=== PATIENT | female | born 1935 | race African-American/Black ===

== ENCOUNTER 2016-06-21 03:40 | Inpatient (IN) | payer OTHER ==
[~2016-06-21] VITALS: Ht 162.6 cm; Wt 65.8 kg
[2016-06-21] VITALS (21 sets, daily range): BP systolic 118–201; BP diastolic 65–105
[2016-06-21] MEDS ORDERED: ASPIRIN 81MG TABLET PO STA (03:50)
[2016-06-21] MEDS ORDERED: ONDANSETRON HCL 4MG/2ML VIAL IV STA (03:50)
[2016-06-21] MEDS ORDERED: MORPHINE SULFATE 4 MG/ML CPJ (NOT FOR IM USE) IV STA (03:50)
[2016-06-21 04:09] LABS: DIFFERENTIAL COMMENT 0; HEMATOCRIT. 30.7 % (36.0-48.0); HEMOGLOBIN. 10.2 g/dL (12.0-16.0); LYMPHOCYTES % 33.2 % (20.0-50.0); MEAN CORPUSCULAR HEMOGLOBIN 35.9 pg (28.0-32.0); MEAN CORPUSCULAR HGB CONC 33.3 g/dL (31.0-37.0); MEAN CORPUSCULAR VOLUME 107.9 fL (81.0-99.0); MEAN PLATELET VOLUME 7.7 fl (7.4-10.4); MONOCYTES % 12.5 % (2.0-8.0); NEUTROPHILS % 51.3 % (40.0-76.0); PLATELET 130 x1000/uL (130-400); RED BLOOD CELL COUNT 2.84 mill/uL (4.2-5.4); RED CELL DISTRIBUTION WIDTH 20.6 % (11.6-14.6); WHITE BLOOD COUNT 4.9 x1000/uL (4.5-11.0)
[2016-06-21 04:22] LABS: INR 1.2; PARTIAL THROMBOPLASTIN TIME 24.8 sec (24.0-34.0)
[2016-06-21 04:27] LABS: ALANINE AMINOTRANSFERASE 29 IU/L (13-61); ANION GAP 18; CALCIUM 7.7 mg/dL (8.5-10.1); CARBON DIOXIDE 27 mEq/L (21-32); CHLORIDE 101 mEq/L (98-107); INDEX HEMOLYSI 1 (1-3); INDEX ICTERIC 1 (1-4); INDEX LIPEMIC 1 (1-3); LIPASE 584 IU/L (73-393); TROPONIN I 0.03 ng/mL (0.00-0.04); UREA NITROGEN BLOOD 67 mg/dL (7-21); eGFR 5 mL/min (>60)
[2016-06-21] MEDS ORDERED: LORAZEPAM 2MG/ML CPJ IV PRN (09:45)
[2016-06-21] MEDS ORDERED: DIPHENHYDRAMINE 50MG/ML VIAL IV PRN (09:45)
[2016-06-21] MEDS ORDERED: GUAIFENESIN 200MG/10ML SUGAR FREE UDC PO PRN (09:45)
[2016-06-21] MEDS ORDERED: TRAMADOL 50MG TABLET PO PRN (09:45)
[2016-06-21] MEDS ORDERED: MORPHINE SULFATE 2 MG/ML CPJ (NOT FOR IM USE) IV PRN (09:45)
[2016-06-21] MEDS ORDERED: NITROGLYCERIN 0.4MG TABLET SL SL PRN (09:45)
[2016-06-21] MEDS ORDERED: ONDANSETRON HCL 4MG/2ML VIAL IV PRN (09:45)
[2016-06-21] MEDS ORDERED: IPRATROPIUM/ALBUTEROL 0.5-3(2.5)MG/3ML NEB INH PRN (09:45)
[2016-06-21] MEDS ORDERED: ACETAMINOPHEN 325MG TABLET PO PRN (09:45)
[2016-06-21] MEDS ORDERED: CLONIDINE 0.1MG TABLET PO PRN (09:45)
[2016-06-21] MEDS ORDERED: MAGNESIUM/ALUMINUM HYDROXIDE/SIMETHICONE 30ML UDC PO PRN (09:45)
[2016-06-21] MEDS ORDERED: ZOLPIDEM TARTRATE 5MG TABLET PO PRN (09:45)
[2016-06-21] MEDS ORDERED: DOCUSATE SODIUM 100MG CAPSULE PO PRN (09:45)
[2016-06-21] MEDS ORDERED: NITROGLYCERIN OINT 1GM/INCH UDPKT TD ONE (10:42)
[2016-06-21] MEDS ORDERED: HEPARIN 5000 UNITS/ML VIAL IV NR (10:45)
[2016-06-21] MEDS ORDERED: ASPIRIN/SOD BICARB/CITRIC ACID 324MG TAB EFF PO NR (10:45)
[2016-06-21] MEDS ORDERED: NITROGLYCERIN OINT 1GM/INCH UDPKT TD SCH ×3 (11:00→16:00)
[2016-06-21] MEDS ORDERED: ENOXAPARIN 30MG/0.3ML SYR SUBCUT SCH (11:00)
[2016-06-21] MEDS ORDERED: ASPIRIN 81MG EC TABLET PO NR (11:00)
[2016-06-21] MEDS ORDERED: LABETALOL 5MG/ML SYR 20 MG/4 ML SYRINGE IV NR ×3 (11:30→13:30)
[2016-06-21] MEDS ORDERED: ESMOLOL 2500MG PREMIX 250 ML IV PRN (12:30)
[2016-06-21] MEDS ORDERED: SEVELAMER CARBONATE 800 MG TABLET PO SCH (12:40)
[2016-06-21] MEDS: ESMOLOL 2500MG PREMIX 250 ML IV PRN ×2 (12:46→15:12)
[2016-06-21 13:04] LABS: CREATINE KINASE 51 IU/L (26-192); CREATINE KINASE MB FRACTION < 0.5 ng/mL (0.5-3.6); HDL CHOLESTEROL 71 mg/dL (40-59); INDEX HEMOLYSI 1 (1-3); INDEX ICTERIC 1 (1-4); INDEX LIPEMIC 1 (1-3); LDL CHOLESTEROL 44 mg/dL (5-100); TRIGLYCERIDE 33 mg/dL (0-150); TROPONIN I 0.05 ng/mL (0.00-0.04)
[2016-06-21] MEDS ORDERED: HYDRALAZINE 20MG/ML VIAL IV PRN ×2 (13:15→18:00)
[2016-06-21] MEDS ORDERED: MIDAZOLAM HCL 5 MG/5 ML VIAL IV NR (13:15)
[2016-06-21] MEDS ORDERED: IOHEXOL-350 100 ML BOTTLE ONE (13:17)
[2016-06-21] MEDS ORDERED: SODIUM CHLORIDE 0.9% 10ML VIAL ONE (13:17)
[2016-06-21 16:55] LABS: CREATINE KINASE MB FRACTION 0.6 ng/mL (0.5-3.6); TROPONIN I 0.05 ng/mL (0.00-0.04)
[2016-06-21] MEDS ORDERED: METOPROLOL TARTRATE 25MG TABLET PO SCH (21:00)
[2016-06-22] MEDS ORDERED: ASPIRIN 325MG EC TABLET PO SCH (09:00)
[2016-06-22] MEDS ORDERED: PANTOPRAZOLE SODIUM 40 MG/VIAL IV SCH (09:00)
[2016-06-22] MEDS ORDERED: FOLIC ACID/VITAMIN B COMP W-C TABLET PO SCH (09:00)
== END 2016-06-21 15:35 | disposition short-term general hospital (02) | DRG 299 ==
LOC: ER 03:46 → 7WST 05:27 → CVICU 11:36
PROVIDERS: ADMIT Internal Medicine; ATTEND Internal Medicine
PROC: 5A1D00Z (ICD-10-PCS; principal; 2016-06-21)
DX: I71.00 Dissection of unspecified site of aorta (principal); I50.33 Acute on chronic diastolic (congestive) heart failure; N18.6 End stage renal disease; I13.2 Hypertensive heart and chronic kidney disease with heart failure and with stage 5 chronic kidney disease, or end stage renal disease; E44.0 Moderate protein-calorie malnutrition; I31.3 Pericardial effusion (noninflammatory); I24.9 Acute ischemic heart disease, unspecified; D63.8 Anemia in other chronic diseases classified elsewhere; Z87.891 Personal history of nicotine dependence; Z99.2 Dependence on renal dialysis; Z90.710 Acquired absence of both cervix and uterus; Z68.24 Body mass index [BMI] 24.0-24.9, adult
CPT/HCPCS: 36415; 71010; 71275; 80053; 80061; 82550; 82553; 83036; 83690; 84484; 85025; 85379; 85610; 85730; 93005; 93306; 93970; 96374; 96375; 99285; A4216; J2270; J2405; J3490; J7030; J7050; Q9967